=== PATIENT | male | born 1945 | race Caucasian/White ===

== ENCOUNTER 2017-06-23 13:12 | Day surgery (SDC) | payer MEDICARE, OTHER ==
[2017-06-23 13:58] LABS: APTT 30.5 SECONDS (22.8-39.4); INR 1.23 (0.85-1.17); PROTIME 15.4 SECONDS (11.6-15.0)
[2017-06-23 14:02] LABS: ALBUMIN 2.8 g/dL (3.4-5.0); ALKALINE PHOSPHATASE 353 U/L (46-116); ALT (SGPT) 171 U/L (10-68); BILIRUBIN - TOTAL 8.18 mg/dL (0.2-1.3); CALC OSMOLALITY 275 mosm/kg (275-300); CALCIUM 9.6 mg/dL (8.5-10.1); CARBON DIOXIDE 29.4 mmol/L (21.0-32.0); CHLORIDE - SERUM 99 mmol/L (98-107); CREATININE - SERUM 0.9 mg/dL (0.6-1.3); GLUCOSE 216 mg/dL (74-106); POTASSIUM - SERUM 3.6 mmol/L (3.5-5.1); PROTEIN - SERUM 7.1 g/dL (6.4-8.2); SODIUM 135 mmol/L (136-145); UREA NITROGEN 11 mg/dL (7-18); eGFR NON AFRICAN AMERICAN 89 mL/min (90-120)
[2017-06-23] MEDS ORDERED: CELEXA10 MG PO (14:11)
[2017-06-23] MEDS ORDERED: MS CONTIN30 MG PO (14:12)
[2017-06-23] MEDS ORDERED: GLUCOPHAGE1000 MG PO (14:12)
[2017-06-23] MEDS ORDERED: PROBIOTIC1 EAC1 PO (14:13)
[2017-06-23] MEDS ORDERED: CINNAMON500 MG PO (14:13)
[2017-06-23 14:14] LABS: BASOPHILS 0.2 % (0-2); EOSINOPHILS 4.2 % (0-7); HEMATOCRIT 35.8 % (42.0-54.0); HEMOGLOBIN 12.2 g/dL (13.5-17.5); IMMATURE GRANULOCYTES 0.4 % (0-5); LYMPHOCYTES 15.9 % (15-50); MCH 30.3 pg (26.0-34.0); MCHC 34.1 g/dL (31.0-37.0); MCV 89.1 fL (80.0-100.0); MEAN PLATELET VOLUME 11.4 fL (7.4-10.4); MONOCYTES 14.6 % (2-11); NEUTROPHILS 64.7 % (40-80); PLATELET COUNT 136 10x3/uL (130-400); RBC 4.02 10x6/uL (4.20-6.10); WBC 5.3 10x3/uL (4.8-10.8)
[2017-06-23] MEDS ORDERED: MAG-OX 400 MG400 MG PO (14:14)
[2017-06-23] MEDS ORDERED: CENTRUM SILVER1 TA1 PO (14:15)
[2017-06-23] MEDS ORDERED: GLYBURIDE5 M1 PO (14:15)
[2017-06-23] MEDS ORDERED: SENNA LAXATIVE8.6 MG PO (14:15)
[2017-06-23 14:25] VITALS: BP 128/72; BMI 26.7
--- NOTE | 2017-06-23 16:51 | NUR ---
10MM X 60MM WALLFLEX BILIARY STENT PLACED [place] [employer].
--- NOTE | 2017-06-23 17:20 | NUR ---
XRZY TIME 1MINUTE 27 SECONDS DYE USED 4 CC.
--- NOTE | 2017-06-23 18:02 | NUR ---
1752 BACK FROM ERCP WITH STENT PLACEMENT. AWAKE AND TALKING. NO COS OF PAIN AND NAUSEA GETTING BETTER. WATER SERVED.
--- NOTE | 2017-06-23 18:42 | NUR ---
182 TOLERATING FULL LIQUIDS. NO COS OF PAIN.
--- NOTE | 2017-06-23 19:01 | NUR ---
1755 IV DCD CATHETER INTACT. DISCHARGE INSTRUCTIONS GIVEN AND VERBALLY UNDERSTANDS.
--- NOTE | 2017-06-23 19:07 | NUR ---
190 ACCOMPANIED TO CAR WITH VIA W/C.
== END 2017-06-23 19:08 | disposition home or self-care (01) ==
LOC: D.OPS 13:12
PROVIDERS: Anesthesiology; Internal Medicine Gastroenterology
DX: K83.1 Obstruction of bile duct (principal); C25.0 Malignant neoplasm of head of pancreas; Z01.812 Encounter for preprocedural laboratory examination